=== PATIENT | male | born 1960 | race Caucasian/White ===

== ENCOUNTER → 2020-05-15 10:05 | Outpatient (BNVA) | payer OTHER, SELFPAY | PROVIDERS: Visit Provider Physician Assistant | DX: Z76.89 Persons encountering health services in other specified circumstances (principal) ==

== ENCOUNTER → 2020-05-23 10:20 | Outpatient (BNVA) | payer OTHER, SELFPAY | PROVIDERS: Visit Provider Physician Assistant | DX: Z13.89 Encounter for screening for other disorder (principal) | CPT/HCPCS: 99213 ==

== ENCOUNTER 2020-06-02 19:07 | Outpatient (REF) | payer OTHER, SELFPAY ==
--- NOTE | 2020-06-02 19:09 | MR_ITS ---
EXAMINATION: MR LUMBAR SPINE WITHOUT CONTRAST CLINICAL INFORMATION: Back pain with worsening paresthesias and weakness. COMPARISON: MRI scan of the lumbar spine 10/08/2019. TECHNIQUE: MRI of the lumbar spine was obtained using routine sequences without contrast. FINDINGS: VERTEBRAL BODIES AND PARASPINAL STRUCTURES: There is anatomic alignment of the vertebral bodies. There is significant intervertebral discs at L1-L2, L4-L5 and L5-S1 with loss of intervertebral disc height at L5-S1, unchanged. Vertebral body heights and contours appear normal. There are degenerative endplate contour changes at L5-S1 with fatty signal toward the left. No fractures are demonstrated and vertebral body heights are maintained. Overall, marrow signal is homogenous. Visualized retroperitoneal and pelvic structures are unremarkable. CONUS MEDULLARIS AND CAUDA EQUINA: Normal, terminating at the level of L1. The lower thoracic spinal cord appears normal. The cauda equina nerve roots and filum terminale appear normal. SPINAL LEVELS: L1-L2: There is mild bilateral facet arthropathy. There is a small diffuse disc bulge. There is no central stenosis. The neural foramina are patent bilaterally. L2-L3: There is mild bilateral facet arthropathy. Disc contour is normal. There is no central stenosis. The neural foramina are patent bilaterally. L3-L4: There is mild bilateral facet arthropathy. Disc contour is normal. There is no central stenosis. The neural foramina are patent bilaterally. L4-L5: There is moderate bilateral facet arthropathy. There is a small disc protrusion in the right neural foramen without exiting nerve root impingement. There is no central stenosis. L5-S1: There is moderate bilateral facet arthropathy. There is a posterior disc protrusion extending into the neural foramina bilaterally with an annular fissure on the right; the study redemonstrates a lateral disc osteophyte complex without definite exiting nerve root impingement. There is no central stenosis. MR/MR lumbar spine wo con IMPRESSION: 1. At L4-L5 there is moderate facet arthropathy. There is a small disc protrusion inferiorly the right without exiting nerve root impingement. There is no central stenosis. 2. At L5-S1 there is moderate facet arthropathy. There is a posterior disc protrusion extending into the neural foramina bilaterally, with a disc osteophyte complex extending into the right neural foramen without definite exiting nerve root impingement. There is no central stenosis.
== END 2020-06-02 19:08 | disposition home or self-care (01) ==
LOC: HO.MRI 19:07
PROVIDERS: PCP Obstetrics & Gynecology; Visit Provider Internal Medicine
DX: M54.9 Dorsalgia, unspecified (principal); R20.2 Paresthesia of skin; M62.81 Muscle weakness (generalized)
CPT/HCPCS: 72148

== ENCOUNTER → 2020-06-05 10:08 | Outpatient (BNVA) | payer OTHER, SELFPAY | PROVIDERS: PCP Obstetrics & Gynecology; Visit Provider Physician Assistant | DX: S39.012D Strain of muscle, fascia and tendon of lower back, subsequent encounter (principal); X58.XXXD Exposure to other specified factors, subsequent encounter; M54.41 Lumbago with sciatica, right side; R20.2 Paresthesia of skin; R53.1 Weakness | CPT/HCPCS: 99213 ==

== ENCOUNTER → 2020-06-19 10:16 | Outpatient (BNVA) | payer OTHER, SELFPAY | PROVIDERS: PCP Obstetrics & Gynecology; Visit Provider Physician Assistant | DX: G54.4 Lumbosacral root disorders, not elsewhere classified (principal) | CPT/HCPCS: 99213 ==

== ENCOUNTER → 2020-06-22 10:29 | Outpatient (BNVA) | payer OTHER, SELFPAY | PROVIDERS: PCP Obstetrics & Gynecology; Visit Provider Internal Medicine | DX: M51.27 Other intervertebral disc displacement, lumbosacral region (principal); M47.817 Spondylosis without myelopathy or radiculopathy, lumbosacral region | CPT/HCPCS: 99213 ==

== ENCOUNTER → 2020-07-04 | Outpatient (BNVA) | payer OTHER, SELFPAY | PROVIDERS: PCP Obstetrics & Gynecology; Visit Provider Internal Medicine | DX: G54.4 Lumbosacral root disorders, not elsewhere classified (principal) | CPT/HCPCS: 99213 ==

== ENCOUNTER → 2020-07-19 09:51 | Outpatient (BNVA) | payer OTHER, SELFPAY | PROVIDERS: PCP Obstetrics & Gynecology; Visit Provider Internal Medicine | DX: M51.36 Other intervertebral disc degeneration, lumbar region (principal) | CPT/HCPCS: 99213 ==

== ENCOUNTER → 2020-08-02 09:38 | Outpatient (BNVA) | payer OTHER, SELFPAY | PROVIDERS: PCP Obstetrics & Gynecology; Visit Provider Internal Medicine | DX: G89.29 Other chronic pain (principal); M54.5 Low back pain; M47.896 Other spondylosis, lumbar region; M53.3 Sacrococcygeal disorders, not elsewhere classified | CPT/HCPCS: 99214 ==

== ENCOUNTER → 2020-08-15 13:49 | Outpatient (BNVA) | payer OTHER, SELFPAY | PROVIDERS: PCP Obstetrics & Gynecology; Visit Provider Internal Medicine | DX: G89.29 Other chronic pain (principal); M54.5 Low back pain; M53.3 Sacrococcygeal disorders, not elsewhere classified | CPT/HCPCS: 99213 ==

== ENCOUNTER → 2020-09-15 13:54 | Outpatient (BNVA) | payer OTHER, SELFPAY | PROVIDERS: PCP Obstetrics & Gynecology; Visit Provider Internal Medicine | DX: M53.3 Sacrococcygeal disorders, not elsewhere classified (principal); M47.894 Other spondylosis, thoracic region; G89.29 Other chronic pain; M54.9 Dorsalgia, unspecified; M54.5 Low back pain | CPT/HCPCS: 99213 ==

== ENCOUNTER → 2020-09-29 13:52 | Outpatient (BNVA) | payer OTHER, SELFPAY | PROVIDERS: PCP Obstetrics & Gynecology; Visit Provider Internal Medicine | DX: M53.3 Sacrococcygeal disorders, not elsewhere classified (principal); M47.896 Other spondylosis, lumbar region; G89.29 Other chronic pain; M25.579 Pain in unspecified ankle and joints of unspecified foot | CPT/HCPCS: 99213 ==

== ENCOUNTER → 2020-10-27 14:05 | Outpatient (BNVA) | payer OTHER, SELFPAY | PROVIDERS: PCP Obstetrics & Gynecology; Visit Provider Internal Medicine | DX: M53.3 Sacrococcygeal disorders, not elsewhere classified (principal); G89.29 Other chronic pain; M54.9 Dorsalgia, unspecified | CPT/HCPCS: 99213 ==

== ENCOUNTER → 2020-11-10 13:54 | Outpatient (BNVA) | payer OTHER, SELFPAY | PROVIDERS: PCP Obstetrics & Gynecology; Visit Provider Internal Medicine | DX: S33.6XXD Sprain of sacroiliac joint, subsequent encounter (principal); X58.XXXD Exposure to other specified factors, subsequent encounter; M47.898 Other spondylosis, sacral and sacrococcygeal region | CPT/HCPCS: 99213 ==

== ENCOUNTER → 2020-12-08 13:37 | Outpatient (BNVA) | payer OTHER, SELFPAY | PROVIDERS: PCP Obstetrics & Gynecology; Visit Provider Internal Medicine | DX: S33.6XXD Sprain of sacroiliac joint, subsequent encounter (principal); M47.897 Other spondylosis, lumbosacral region; X58.XXXD Exposure to other specified factors, subsequent encounter | CPT/HCPCS: 99213 ==

== ENCOUNTER → 2020-12-21 15:30 | Outpatient (BNVA) | payer OTHER, SELFPAY | PROVIDERS: PCP Obstetrics & Gynecology; Visit Provider Internal Medicine | DX: M47.898 Other spondylosis, sacral and sacrococcygeal region (principal) | CPT/HCPCS: 99213 ==

== ENCOUNTER → 2021-01-05 15:33 | Outpatient (BNVA) | payer OTHER, SELFPAY | PROVIDERS: PCP Obstetrics & Gynecology; Visit Provider Internal Medicine | DX: G89.29 Other chronic pain (principal); M54.9 Dorsalgia, unspecified | CPT/HCPCS: 99213 ==

== ENCOUNTER → 2021-02-05 15:31 | Outpatient (BNVA) | payer OTHER, SELFPAY | PROVIDERS: PCP Obstetrics & Gynecology; Visit Provider Internal Medicine | DX: S39.012D Strain of muscle, fascia and tendon of lower back, subsequent encounter (principal); X58.XXXD Exposure to other specified factors, subsequent encounter | CPT/HCPCS: 99213 ==

== ENCOUNTER → 2021-02-19 15:30 | Outpatient (BNVA) | payer OTHER, SELFPAY | PROVIDERS: PCP Obstetrics & Gynecology; Visit Provider Internal Medicine | DX: M54.5 Low back pain (principal) | CPT/HCPCS: 99213 ==

== ENCOUNTER → 2021-03-22 15:20 | Outpatient (BNVA) | payer OTHER, SELFPAY | PROVIDERS: PCP Obstetrics & Gynecology; Visit Provider Internal Medicine | DX: M47.896 Other spondylosis, lumbar region (principal) | CPT/HCPCS: 99214 ==

== ENCOUNTER 2024-09-09 07:07 | Emergency (ER) | payer OTHER, SELFPAY ==
[2024-09-09] VITALS (8 sets, daily range): BP systolic 122–190; BP diastolic 75–102; PULSE 78–89; RESP 18; TEMP 36.4–37.1; O2SAT 96–100; BMI 35.4
--- NOTE | ~2024-09-09 | XR_ITS ---
EXAMINATION: XR SHOULDER, LEFT CLINICAL INFORMATION: post reduction COMPARISON: Earlier same day at 8:12 AM. TECHNIQUE: Single AP view left shoulder, post reduction. FINDINGS: Previously seen anteroinferior glenohumeral joint dislocation has been reduced. Gross anatomical glenohumeral alignment on this limited AP view. No definitive fractures identified although exam limited. XR/XR shoulder LT min 2V IMPRESSION: 1. Limited AP view demonstrating congregational of gross anatomical alignment of the glenohumeral joint. 2. Exam limited for detection of fractures. None grossly seen. Electronically signed by: Serafin Daly MD 09/09/2024 09:[address] [facility]
--- NOTE | ~2024-09-09 | XR_ITS ---
EXAMINATION: XR SHOULDER 2 OR MORE VIEWS LEFT HISTORY: trauma COMPARISON: There are no prior studies available for comparison. FINDINGS: Five views of the left shoulder are submitted. Osseous mineralization is normal. There is anterior dislocation of the humeral head. No fracture is seen. There is moderate to severe osteophytosis of the AC joint, with joint space narrowing and osteophyte formation. The soft tissues are unremarkable. XR/XR shoulder LT min 2V IMPRESSION: Anterior dislocation of the humeral head. Electronically signed by: Max Luis MD 09/09/2024 08:20 AM [facility]
--- NOTE | ~2024-09-09 | XR_ITS ---
EXAMINATION: XR KNEE 3 VIEWS RIGHT HISTORY: trauma COMPARISON: There are no prior studies available for comparison. FINDINGS: Four views of the right knee are submitted. Osseous mineralization is normal. There is no fracture or dislocation. The joint spaces are preserved. There is calcification of the popliteal artery. There is no joint effusion. XR/XR knee RT 3V IMPRESSION: No evidence of fracture of the right knee. Electronically signed by: Max Luis MD 09/09/2024 08:22 AM [facility]
--- NOTE | 2024-09-09 07:14 | ED_ITS ---
HPI - Fall General Chief Complaint: Fall Stated Complaint: work fall -knee pain & Shoulder dislocation Source: patient Mode of arrival: EMS Limitations: no limitations History of Present Illness HPI Narrative: This is 64 years old male presented to the emergency department via ambulance after a fall at work. He tripped and fell. He is complaining of left shoulder pain and right knee pain. No head injury no neck pain no chest wall pain no abdominal pain MD complaint: fall Onset (ago): hour(s) (2) Fall from: standing Fall witnessed: no Place fall occurred: work Loss of consciousness: none Prolonged down time: no Context: tripped/slipped Location of injury - extremities: left: shoulder Severity: moderate Severity scale (1-10): 5 Quality: sharp Associated symptoms (after fall): denies Related Data Allergies Allergy/AdvReac Type Severity Reaction Status Date / Time penicillin G Allergy Unknown Hives Verified 09/09/24 07:19 Penicillins [PENICILLINS] Allergy Unknown UNKNOWN Unverified 04/27/20 15:42 Review of Systems Constitutional: Constitutional: Reports no additional constitutional complaints ENT: Reports system reviewed and no additional complaints, except as documented Gastrointestinal: Gastrointestinal: Reports no additional gastrointestinal complaints Musculoskeletal: Comments: Tenderness in the left shoulder deformity in the left shoulder PMFSH Past Medical History PMFSH Narrative: Hypertension Social History Social History Smoked in Last 30 Days: No Use of substances other than those prescribed or required for medical reasons: No Advance Directives: No Advance Directives Information Provided: Yes Physical Exam Vital Signs: Vital Signs: Last Vital Signs Temp 98.7 F 09/09/24 08:30 Pulse 80 09/09/24 08:38 Resp 18 09/09/24 08:38 BP 147/96 H 09/09/24 08:38 Pulse Ox 99 09/09/24 08:38 O2 Del Method Nasal Cannula 09/09/24 08:38 O2 Flow Rate 4 09/09/24 08:38 Oxygen Flow Rate 6 09/09/24 08:30 BMI result Body Mass Index 35.4 Not acute distress Const: General: cooperative Orientation/consciousness: patient oriented x3 Limitations: no limitations HEENT: Other: No sign of trauma Neck: Neck: Yes normal visual inspection and Yes full ROM Chest: Chest palpation & inspection: normal inspection of the chest Resp: Effort & Inspection: normal respiratory effort Auscultation: clear to auscultation bilaterally Cardio: Jugular venous distension: no JVD Rate: regular rate Rhythm: regular rhythm GI: Inspection: Yes normal to inspection Palpation (GI): Soft to palpation, not firm, nontender and no guarding Neuro: General: patient oriented x3 Extrem: Other: Tenderness, deformity of the left shoulder Course Reevaluation(s) Reevaluation #1: Patient signed consent for deep sedation and reduction Mallampati 1 no prior problems with the anesthesia we will proceed with procedural sedation with propofol Time: 08:22 Reevaluation #2: Shoulder is reduced clinically, also x-ray showed reduction of the shoulder anticipate discharge Time: 09:14 Reevaluation #3: remain stable his ride is here Medications Administered Discontinued Medications Generic Name Dose Route Start Last Admin Trade Name Jorjeq PRN Reason Stop Dose Admin Fentanyl 50 mcg 09/09/24 07:18 09/09/24 07:33 Fentanyl Citrate/Pf 100 Mcg/2 Ml Vial IVPUSH 09/09/24 07:19 50 mcg ONCE ONE Administration Protocol Propofol 100 mg 09/09/24 08:16 09/09/24 08:38 Propofol 200 Mg/20 Ml Vial IVPUSH 09/09/24 08:17 90 mg ONCE ONE Administration Procedures Orthopedic Joint Reduction Joint #1: Time Out Performed: Yes Side: left Joint Reduction Location: shoulder Analgesia: procedural sedation Shoulder Technique Used (if applicable): traction/counter-traction Technique used: traction/counter-traction and direct manipulation Post-reduction neuro exam: intact Post-reduction vascular: intact Post Reduction X-Ray Obtained: Yes Post Reduction X-Ray Results: reduced Patient Tolerated Procedure: well Procedural Sedation Indication: fracture/dislocation reduction ASA Class: II Mallampati Class: I Time of Last PO Intake: 05:00 Preparation: carbonating stone cleaner applied, pulse oximeter, capnometry used, supplemental O2 applied, suction/airway equipment at bedside and IV secured Fentanyl: IV Fentanyl dose (mcg): 50 IV Propofol dose (mg): 90 Patient Tolerated Procedure: well Complications: none Medical Decision Making Medical Decision Making MDM Narrative: Patient presented after a fall, exam consistent with left shoulder dislocation Differential Diagnosis Differential Diagnoses: The differential diagnosis associated with the presentation includes Left shoulder dislocation/fracture of the humerus/fracture of the clavicle Independent Interpretation I performed an independent interpretation of an: Plain X-Ray Interpretation: X-ray was reviewed interpreted by me 1st x-ray showed left shoulder dislocation x-ray done after reduction showed normal autonomy Radiology Impression Discussion of test interpretation with radiology: I have reviewed the radiologist's reading. Independent Historian Clinical information obtained from an independent historian. History obtained from or confirmed by: EMS Chronic Conditions Patient?s care impacted by: Hypertension Discharge Plan Discharge Clinical Impression: Dislocation of shoulder Qualifiers: Encounter type: initial encounter Laterality: left Qualified Code(s): S43.005A - Unspecified dislocation of left shoulder joint, initial encounter Patient Disposition: Home, Self-Care Instructions: Shoulder Dislocation (ED) Additional Instructions: Keep the sling on make an appointment with the with the orthopedist return to the emergency room if worse Referrals: Hiro Sandhu MD [Physician] - 09/13/24 Stand Alone Forms: Work/School Release Print Language: Egyptian
[2024-09-09] MEDS: fentaNYL citrate/PF 100 MCG/2 ML VIAL 50 MCG IVPUSH (07:33)
[2024-09-09] MEDS: propofoL 200 MG/20 ML VIAL 100 MG IVPUSH (08:38)
--- NOTE | 2024-09-09 08:49 | MHC.EDTECH ---
pt placed with shoulder immobilizer sling, ortho paperwork signed and in proper area, signed papers, pt resting at this time
--- NOTE | 2024-09-09 09:01 | PC.NURSE ---
CONSCIOUS SEDATION DONE: RT, , PA AND 2 RNS AT BEDSIDE CRASH CART AVAILABLE, SUCTION SET UP. PT ON RAG INSPECTOR AND END TIDAL CO2. Time out done IV in right AC patent MD ADMINISTERED 90 MG OF PROPOFOL FOR SEDATION Pts left shoulder successfully reduced per MD, sling placed PT TOLERATED PROCEDURE WELL WITH NO ISSUES/ COMPLICATIONS. VSS RNs remained in room until pt back to baseline, reporting he overall feels well
--- NOTE | 2024-09-09 09:04 | PC.NURSE ---
ONLY 90 MG OF PROPOFOL GIVEN BY MD, 2 RNS VERIFYING, 110 MG WASTED
--- OUTSIDE RECORDS SUMMARY | 2024-09-09 10:41 | XMS_ITS | Clinical Summary ---
Author Organization [facility] it Address [id number] [place] [id number] Care Team Providers Care Fly Finisher Name Role Phone Babak Aiken MD Primary Care Provider [phone] Allergies Active Allergy Reactions Criticality Noted Date Comments Penicillins Hives 05/30/2006 Medications Medication Sig Dispensed Refills Start Date End Date Status lisinopriL (PRINIVIL,ZESTRI L) 20 mg tablet TAKE 1 TABLET BY MOUTH DAILY 90 tablet 08/10/2024 Active lisinopriL (PRINIVIL,ZESTRI L) 20 mg tablet Take 1 tablet (20 mg total) by mouth 1 (one) time each day. 01/30/2024 Active multivitamin with minerals (MULTIPLE VITAMIN-MINERALS ORAL) Take by mouth 1 (one) time each day. Active rosuvastatin (CRESTOR) 10 mg tablet TAKE 1 TABLET BY MOUTH EVERY EVENING Active fluticasone propionate (FLONASE) 50 mcg/actuation nasal spray Administer 2 sprays into each nostril 1 (one) time each day. 06/25/2023 Active fluticasone propionate (FLONASE) 50 mcg/actuation nasal spray SHAKE LIQUID AND USE 2 SPRAYS IN EACH NOSTRIL DAILY 16 g 2 08/25/2024 Active fluticasone propionate (FLONASE) 50 mcg/actuation nasal spray SHAKE LIQUID AND USE 2 SPRAYS IN EACH NOSTRIL DAILY 16 g 07/19/2024 Discontinued Active Problems Problem Noted Date Diagnosed Date Essential (primary) hypertension 08/10/2024 Pure hypercholesterolemia 08/10/2024 Microscopic hematuria 09/25/2021 Bilateral hydrocele 10/01/2019 Overview (08/10/2024): U/s 09/2019 Lumbar spondylosis 11/02/2018 Neural foraminal stenosis of lumbosacral spine 0 11/02/2018 Overview (08/10/2024): MRI - mild-moderate L and mild R at L5 - S 1 Left inguinal hernia 06/27/2016 Umbilical hernia without obstruction and without gangrene 06/27/2016 Obesity (BMI 30-39.9) 11/05/2013 Immunizations Name Administration Dates Next Due Influenza Quadravalent, MDCK , 0.5ml, preservative free (Flucelvax) 6mo and older 05/27/2023 Influenza trivalent, 0.5mL, preservative free (Fluarix; FluLaval; Fluzone) ages 6mo and older (Afluria) 3 years and older 04/24/2016,05/16/2015,06/07/2014,2012,06/18/2010,05/22/2007 Pneumococcal conjugate 20 va lent (Prevnar 20, PCV 20) 2mo and older 12/02/2023 Tdap Tetanus diptheria acell ular pertussis (Boostrix; Adacel) 7yo and older 05/27/2023,09/25/2011 Surgical History Surgery Date Site/Laterality Comments COLONOSCOPY 08/08/08 PROCEDURE: IN COLONOSCOPY STOMA DX INCLUDING COLLJ SPEC SPX; COMMENT: Up to cecum, good preparation, small polyp removed: Normal mucosa with lymphoid nodule, no adenoma, otherwise normal colon exam FOOT SURGERY Bilateral PROCEDURE: HISTORICAL FOOT SURGERY; COMMENT: achilles tendon repairs HERNIA REPAIR PROCEDURE: REPAIR UMBILICAL HERNIA HERNIA REPAIR PROCEDURE: REPAIR INGUINAL HERNIA OTHER SURGICAL HISTORY PROCEDURE: ---- OTHER ----; COMMENT: ventral hernia repair Medical History Medical History Date Comments Pure hypercholesterolemia DX:Pur e hypercholesterolemia Leukocytosis, unspecified DX:Ita kocytosis, unspecified Lumbago DX:Lumbago History of pyelonephritis DX:His tory of pyelonephritis Essential (primary) hypertension DX:Essential (primary) hypertension History of avulsion fracture 11/02/2018 DX: History of avulsion fracture; COMMENT: L Elbow- post fall. Saw Ortho Left inguinal hernia 06/27/2016 DX:Left ing uinal hernia Lumbar spondylosis 11/02/2018 DX:Lumbar spo ndylosis Neural foraminal stenosis of lumbosacral spine 11/02/2018 DX:Neural foraminal stenosis of lumbosacral spine; COMMENT: MRI - mild-moderate L and mild R at L5 - S 1 Umbilical hernia without obs truction and without gangrene 06/27/2016 DX:Umbilical hernia without obstruction and without gangrene Obesity (BMI 30-39.9) 11/05/2013 DX:Obesity (BMI 30-39.9) History of acute renal failure D X:History of acute renal failure; COMMENT: Dr. Neal Family History Medical History Relation Name Comments Other: ?COPD Brother 1 tobacco-oxygen tank exploded b/c smoking while on O2 No Known Problems Daughter 1 No Known Problems Daughter 2 Lung cancer Father tobacco, a ge 44yo. also drinker Stroke Maternal Grandmother Breast cancer Mother Hypertension Mother Coronary artery disease Paternal Grandfather s/p ID No Known Problems Son 1 No Known Problems Son 2 No Known Problems Son 3 Coronary artery disease Uncle dad's bro s/p ID Diabetes Uncle dad's bro Relation Name Status Comments Brother 1 On oxygen david [place] had fire Brother 2 Alive healthy Daughter 1 Alive healthy Daughter 2 Alive healthy Father (Age 44) lung CA Maternal Grandfather (Age 70) st omach CA Maternal Grandmother (Age 50's ) mi Mother (Age 70s) Breast ca ncer Paternal Grandfather (Age 0s) Mi Paternal Grandmother [place] Sister 1 Alive brain aneurism x 3 Sister 2 Alive diabetes Sister 3 Alive healthy Sister 4 Alive healthy Son 1 Alive healthy Son 2 Alive healthy Son 3 Alive healthy Uncle dad's bro Alive Social History Tobacco Use Types Packs/Day Years Used Date Smoking Tobacco: Former Cigarettes Q uit: 12/31/2012 Smokeless Tobacco: Former Alcohol Use Standard Drinks/Week Comments No 25 (1 standard drink = 0.6 oz pu re alcohol) Sex and Gender Information Value Date Recorded Sex Assigned at Not on file Gender Identity Not on file Sexual Orientation Not on file Obstetrics History Last Filed Vital Signs Vital Sign Reading Time Taken Comments Blood Pressure 113/64 12/02/2023 2:26 PM EDT Pulse 100 08/20/2023 10:14 AM EST Temperature - - Respiratory Rate - - Oxygen Saturation - - Inhaled Oxygen Concentration - - Weight 104 kg (230 lb) 12/02/2023 2:26 PM EDT Height 175.3 cm (5' 9 ) 12/02/2023 2:26 PM EDT Body Mass Index 33.96 12/02/2023 2:26 PM EDT Plan of Treatment Health Maintenance Due Date Last Done Comments Zoster Vaccines (1 of 2) 2008 Depression Screening 07/14/2022 Lung Cancer Screening (Low Dose CT) 07/14/2022 Social Influencers of Health Screening 07/14/2022 Falls Risk Assessment 2023 COVID-19 Vaccine ( season) 2024 01/20/2021, 12/30/2020 Influenza Vaccine (#1) 2024 , 04/24/2016, 05/16/2015, Additional history exists Hypertension/CHF/CAD Annual BMP Blood Test 12/01/2024 12/02/2023 Cholesterol Screening (Lipid Panel) 12/01/2028 12/02/2023 Colorectal Cancer Screening: Colonoscopy 02/14/2032 02/13/2022 DTaP,Tdap,and Td Vaccines (3 - Td or Tdap) 05/27/2033 05/27/2023, 09/25/2011 RSV Immunization Patients 60+ Years Old (1 - 1-dose 75+ series) 2033 Hepatitis C Screening Completed 04/01/2015 Pneumococcal Vaccine: 65+ Years Completed 12/02/2023 Abdominal Aortic Aneurysm (AAA) Screen Completed 12/15/2023, 12/15/2023, 12/15/2023 HIB Vaccines Aged Out No longer eligi ble based on patient's age to complete this topic HPV Vaccines Aged Out No longer eligi ble based on patient's age to complete this topic Hepatitis A Vaccines Aged Out No long er eligible based on patient's age to complete this topic Hepatitis B Vaccines Aged Out No long er eligible based on patient's age to complete this topic IPV Vaccines Aged Out No longer eligi ble based on patient's age to complete this topic MMR Vaccines Aged Out No longer eligi ble based on patient's age to complete this topic Meningococcal ACWY Vaccine Aged Out N o longer eligible based on patient's age to complete this topic RSV Immunization Patients Under 20 months Aged Out No longer eligible based on patient's age to complete this topic Varicella Vaccines Aged Out No longer eligible based on patient's age to complete this topic Procedures Procedure Name Priority Date/Time Associated Diagnosis Comments US ABDOMINAL AORTA REAL TIME SCREEN STUDY AAA Routine 12/15/2023 8:40 AM EDT Encounter for screening for cardiovascular disorders ANNUAL BMP BLOOD TEST Routine 12/02/2023 LIPID PANEL Routine 12/02/2023 COLONOSCOPY Routine 02/13/2022 HEPATITIS C SCREENING Routine 04/01/2015 from Last 3 Months or Most Recently Relevant to Health Maintenance Results * US ABDOMINAL AORTA REAL TIME SCREEN STUDY AAA (12/15/2023 8:40 AM EDT) Anatomical Region Laterality Modality Ultrasound 12/02/2023 2:44 PM EDT Narrative 12/15/2023 10:07 AM EDT US ABDOMINAL AORTA REAL TIME SCREEN STUDY AAA ABDOMINAL AORTA SCREENING ULTRASOUND History: ??Screening for abdominal aortic aneurysm. Comparison: None. FINDINGS: ??The proximal aorta measures 2.7 cm in diameter. The mid aorta measures 2.1 cm in diameter. The distal aorta measures 1.7 cm in diameter. There is atherosclerosis. No periaortic fluid collection is seen. The aortic bifurcation is normal in appearance. The proximal bilateral common iliac arteries are normal in caliber. IMPRESSION: IMPRESSION: No visualized abdominal aortic aneurysm. Procedure Note Saskia Bowman MD - 03/29/2024 US ABDOMINAL AORTA REAL TIME SCREEN STUDY AAA ABDOMINAL AORTA SCREENING ULTRASOUND History: Screening for abdominal aortic aneurysm. Comparison: None. FINDINGS: The proximal aorta measures 2.7 cm in diameter. The mid aortameasures 2.1 cm in diameter. The distal aorta measures 1.7 cm in diameter. There is atherosclerosis. No periaortic fluid collection is seen. The aortic bifurcation is normalin appearance. The proximal bilateral common iliac arteries are normal in caliber. IMPRESSION: IMPRESSION: No visualized abdominal aortic aneurysm. C Naeem Aiken MD IMG US PROCEDURES * Annual BMP Blood Test (12/02/2023) [facility] Annual BMP Blood Test abstracted Historical Provider MD LIBIA Rosa * (ABNORMAL) Lipid panel (12/02/2023) [facility] LDL/HDL Ratio 4 0 - 4 Triglycerides 235(A) 0 - 150 mg/dL Cholesterol 176 0 - 200 mg/dL HDL 44 40 mg/dL LDL Cholesterol 85 0 - 100 mg/dL Blood Venous blood specimen / Unknown Historical Provider LAB BLOOD ORDERAB LES * Colonoscopy (02/13/2022) [facility] Colonoscopy abnormal, abstracted Anatomical Region Laterality Modality Other Historical Provider MD LIBIA MERCADO * Hepatitis C Screening (04/01/2015) [facility] Hepatitis C Screening abstracted Historical Provider MD LIBIA Rosa from Last 3 Months or Most Recently Relevant to Health Maintenance Care Teams Fly Finisher Relationship Specialty Start Date End Date Babak Aiken MD [address] [place] [id number] PCP - General Internal Medicine 02/09/21
== END 2024-09-09 10:15 | disposition home or self-care (01) ==
PROVIDERS: Emergency Provider Emergency Medicine
DX: S43.015A Anterior dislocation of left humerus, initial encounter (principal); W01.198A Fall on same level from slipping, tripping and stumbling with subsequent striking against other object, initial encounter; M25.561 Pain in right knee; Y93.89 Activity, other specified; Y92.9 Unspecified place or not applicable; Y99.0 Civilian activity done for income or pay
CPT/HCPCS: 23650; 73030; 73562; 96374; 96375; 99284; 99285; J2704; J3010

== ENCOUNTER → 2024-09-09 07:13 | Outpatient (BNV) | payer OTHER, SELFPAY | PROVIDERS: Emergency Provider Emergency Medicine; Visit Provider Radiology Diagnostic Radiology | DX: S43.015A Anterior dislocation of left humerus, initial encounter (principal); M25.512 Pain in left shoulder; S80.911A Unspecified superficial injury of right knee, initial encounter | CPT/HCPCS: 73030; 73562 ==

== ENCOUNTER 2024-09-09 14:42 | Emergency (ER) | payer OTHER, SELFPAY ==
--- NOTE | ~2024-09-09 | XR_ITS ---
EXAMINATION: XR SHOULDER, LEFT CLINICAL INFORMATION: pain COMPARISON: None available. TECHNIQUE: AP external rotation, Grashey, scapular Y, and axillary views of the left shoulder. FINDINGS: No acute cortical disruption or malalignment. Focal calcification below the surgical humeral neck. Degenerative changes in the acromioclavicular joint. No lytic or blastic lesions. XR/XR shoulder LT min 2V IMPRESSION: No acute fracture or dislocation. Electronically signed by: Emmanuel Ware MD 09/09/2024 03:55 PM EST RP
[2024-09-09 14:51] VITALS: BP 156/91; PULSE 104; RESP 16; TEMP 36.4; O2SAT 97; BMI 35.2
--- NOTE | 2024-09-09 14:55 | ED_ITS ---
HPI - General Adult General Chief complaint: Extremity Problem Stated complaint: L shoulder dislocation - seen earlier Time Seen by Provider: 09/09/24 17:07 Source: patient, RN notes reviewed and old records reviewed Mode of arrival: ambulatory Limitations: no limitations History of Present Illness ED Provider: Oniel HPI narrative: 64-year-old male presents for evaluation of left shoulder pain. The patient was discharged from this hospital a few hours prior to arrival after being diagnosed with a left shoulder dislocation. He apparently had a rather difficult reduction in required conscious sedation. He reports he took his sling off to shower and had increasing pain to his left shoulder. He is worried that he dislocated the left shoulder again Related Data Previous Rx's ?Medication ?Instructions ?Recorded ibuprofen 600 mg tablet 600 mg PO Q6H PRN pain #20 tabs 09/09/24 Allergies Allergy/AdvReac Type Severity Reaction Status Date / Time penicillin G Allergy Unknown Hives Verified 09/09/24 14:55 Penicillins [PENICILLINS] Allergy Unknown UNKNOWN Verified 09/09/24 14:55 Review of Systems Musculoskeletal: Musculoskeletal: Reports arthralgias, Reports joint swelling and Reports limited range of motion PMFSH Social History Social History Advance Directives: Yes Advance Directives Information Provided: No Advance Directives on File: No Physical Exam ED Vital Signs: Vital Signs - 24 hr 09/09/24 14:51 09/09/24 17:46 Temperature 97.6 F 97.6 F Pulse Rate 104 H 104 H Respiratory Rate 16 16 Blood Pressure 156/91 H 156/91 H Pulse Oximetry 97 97 Oxygen Delivery Method Room Air Room Air BMI result Body Mass Index 35.2 Const General: healthy appearing, comfortable, no acute distress, alert and awake Nutritional Appearance: well nourished Orientation/consciousness: patient oriented x3 HENMT Head: Yes normocephalic and Yes atraumatic Eyes Eyelids: Yes eyelids normal Conjunctivae: conjunctivae normal Sclerae: sclerae normal Corneas: corneas normal Pupils: Equal, round and reactive pupils present EOM: EOMs intact bilaterally Resp Effort & Inspection: normal respiratory effort, able to speak in complete sentences and not labored Skin General skin exam: elasticity normal Neuro General: patient oriented x3 Cranial nerves: Yes Equal, round and reactive pupils present and Yes Bilaterally intact EOM present Cognition (Neuro): normal cognition Extrem Other: The patient has minimal tenderness to the left shoulder globally. There was no palpable deformity. It does appear that the humeral head is in the anatomically correct position on exam. Course Course Course Narrative: RME, this is a rapid medical exam performed by Willy Engle please refer to primary provider for complete H&P- 64-year-old male presents for evaluation of left shoulder pain. He was seen here this morning for a dislocated shoulder. He reports his pain had resolved when he had the shoulder reduced but reports that his pain has returned and he was concerned it was dislocated again. Plan for repeat x-ray Medical Decision Making Medical Decision Making MDM Narrative: 64-year-old male presents for evaluation of left shoulder pain, he was here a few hours ago for a shoulder dislocation. Given his returning pain an x-ray of the left shoulder was ordered to evaluate for additional dislocation Differential Diagnosis Differential Diagnoses: The differential diagnosis associated with the presentation includes Shoulder dislocation Shoulder sprain Rotator cuff injury Humeral head fracture Independent Interpretation I performed an independent interpretation of an: Plain X-Ray (Agree with Radiology interpretation) Radiology Impression Discussion of test interpretation with radiology: I have reviewed the radi ologist's reading. Radiologist Impression: FINDINGS: No acute cortical disruption or malalignment. Focal calcification below the surgical humeral neck. Degenerative changes in the acromioclavicular joint. No lytic or blastic lesions. XR/XR shoulder LT min 2V IMPRESSION: No acute fracture or dislocation. Electronically signed by: Emmanuel Ware MD 09/09/2024 03:55 PM [facility] Discharge Plan Discharge Clinical Impression: Acute pain of left shoulder Patient Disposition: Home, Self-Care Instructions: Arthralgia (ED) Additional Instructions: Your shoulder is still in the correct location. It did not dislocate again Follow up with Orthopedics at the number provided. Use ibuprofen as needed for pain Prescriptions: New ibuprofen 600 mg tablet 600 mg PO Q6H PRN (Reason: pain) Qty: 20 0RF Interventions: ED Discharge Assessment Last Done: 09/09/24 17:46 Discharge Date/Time: 09/09/24 17:47 Print Language: Armenian
[2024-09-09 17:46] VITALS: BP 156/91; PULSE 104; RESP 16; TEMP 36.4; O2SAT 97
== END 2024-09-09 17:47 | disposition home or self-care (01) ==
PROVIDERS: Emergency Provider Emergency Medicine
DX: M25.512 Pain in left shoulder (principal)
CPT/HCPCS: 73030; 99282; 99283

== ENCOUNTER 2024-09-24 13:21 | Outpatient (AMB) | payer OTHER, SELFPAY ==
--- NOTE | 2024-09-24 13:32 | A.OFFVIS_ITS ---
Vital Signs 09/24/24 13:47 Height 5 ft 9 in Weight 238 lb BMI 35.1 Intake Visit Reasons: FC - Right Shoulder dislocation- 09/09/24 Intake Note: * Matteo 64 yr old male who is right hand dominant, presents today for his W/C injury to his right shoulder. States he tripped and fell. 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 He later return to the ED due to increase pain when he removed his sling. Currently states his pain is better as long as he wears his sling, and when he lifts his arm to shoulder. Denies numbness or tingling in hand. Allergies penicillin G Allergy (Unknown, Verified 09/24/24 13:46) Hives Penicillins [PENICILLINS] Allergy (Unknown, Verified 09/24/24 13:46) UNKNOWN Medication List - Last Reconciled 09/28/24 by Reyna Wilkerson PA-C ibuprofen 600 mg PO Q6H PRN lisinopril mg PO DAILY rosuvastatin mg PO HPI HPI FC - Right Shoulder dislocation- 09/09/24: Details: 64 yo male presents to the office today for an injury he sustained to the left shoulder while at work on 09/09/24. He states he fell with his arm stretched out and as he landed the shoulder came out of socket. He was seen in the ED, xrays obtained which was significant for dislocation. The shoulder was reduced and he was placed in a sling and referred to our office for ortho eval. 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 Tenderness to palpation over the proximal bicep tendon. He is able to initiate RTC strength with mild discomfort. NVI. Assessment & Plan Assessment & Plan (1) Dislocation of shoulder: Code(s): S43.006A - Unspecified dislocation of unspecified shoulder joint, initial encounter Category: Medical Qualifiers: Encounter type: initial encounter Laterality: left Qualified Code(s): S43.005A - Unspecified dislocation of left shoulder joint, initial encounter Plan: An order for PT has been placed to work on ROM, RTC and periscap stabilization. He should limit overhead activity and avoid positions of instability. He may return to work with restrictions of no lifting, pushing, pulling, and carrying with left arm until next follow up appointment in 6 weeks, sooner if needed. Orders: Orders PT Evaluation and Treatment Today S43.005A - Unspecified dislocation of left shoulder joint, initial encounter Coding Level of Care Code New Pt Level 3 (65067) Complex EM visit Add On G2211 Diagnoses Dislocation of shoulder S43.005A Encounter type: initial encounter Laterality: left
--- OUTSIDE RECORDS SUMMARY | 2024-09-24 13:34 | XMS_ITS | Clinical Summary ---
Author Organization [facility] [address] Address [address] [place] [address] Phone Care Team Providers Care Mailroom Courier Name Role Phone Babak Aiken MD Primary Care Provider [phone] Allergies Active Allergy Reactions Criticality Noted Date Comments Penicillins Hives 05/30/2006 Medications lisinopriL (PRINIVIL,ZESTR IL) 20 mg tablet TAKE 1 TABLET BY MOUTH DAILY 90 tablet 4 Active lisinopriL (PRINIVIL,ZESTR IL) 20 mg tablet Take 1 tablet (20 mg total) by mouth 1 (one) time each day. 4 Active multivitamin with minerals (MULTIPLE VITAMIN-MINERAL S ORAL) Take by mouth 1 (one) time each day. Active rosuvastatin (CRESTOR) 10 mg tablet TAKE 1 TABLET BY MOUTH EVERY EVENING Active fluticasone propionate (FLONASE) 50 mcg/actuation nasal spray Administer 2 sprays into each nostril 1 (one) time each day. 3 Active fluticasone propionate (FLONASE) 50 mcg/actuation nasal spray SHAKE LIQUID AND USE 2 SPRAYS IN EACH NOSTRIL DAILY 16 g 2 5 Active Active Problems Problem Noted Date Diagnosed Date [...] Surgery Date Site/Laterality Comments COLONOSCOPY 08/08/08 PROCEDURE: TX COLONOSCOPY STOMA DX INCLUDING COLLJ SPEC SPX; [...] Mother Coronary artery disease Paternal Grandfather s/p RI No Known Problems Son 1 No Known Problems Son 2 No Known Problems Son 3 Coronary artery disease Uncle dad's bro s/p [place] Diabetes Uncle dad's bro Relation Name Status [...] Recorded Sex Assigned at Not on file Legal Sex Male 3:02 AM EST Gender Identity Not on file Sexual Orientation [...] Hepatitis C Screening Completed 04/01/2015 Pneumococcal Vaccine: 50+ Years Completed 12/02/2023 Abdominal Aortic Aneurysm (AAA) [...] patient's age to complete this topic Meningococcal B Vacine Aged Out No lo nger eligible based on patient's age to complete [...] abdominal aortic aneurysm. C Naeem Aiken MD IM US PROCEDURES Final Result * Annual BMP Blood Test (12/02/2023) [facility] Annual BMP Blood Test abstracted [facility] Provider HEALTH MAINTENANCE Final Result * (ABNORMAL) Lipid panel (12/02/2023) [facility] LDL/HDL Ratio 4 0 - 4 Triglycerides 235(A) 0 - 150 mg/dL Cholesterol 176 0 - 200 mg/dL HDL 44 >=40 mg/dL LDL Cholesterol 85 0 - 100 mg/dL Blood Venous blood specimen / Unknown [facility] Provider LAB BLOOD ORDERABLES Chayo l Result * Colonoscopy (02/13/2022) [facility] Colonoscopy abnormal, abstracted Anatomical Region Laterality Modality Other [facility] Provider HEALTH MAINTENANCE Final Result * Hepatitis C Screening (04/01/2015) [facility] Hepatitis C Screening abstracted [facility] Provider HEALTH MAINTENANCE Final Result from Last 3 Months or Most Recently Relevant to Health Maintenance Care Teams Mailroom Courier Relationship Specialty Start Date End Date Babak Aiken MD [address] [place] [id number] PCP - General Internal Medicine 02/09/21
[2024-09-24 13:47] VITALS: BMI 35.1
== END 2024-09-24 14:27 | disposition home or self-care (01) ==
PROVIDERS: Visit Provider Physician Assistant
DX: S43.005A Unspecified dislocation of left shoulder joint, initial encounter (principal); Z04.2 Encounter for examination and observation following work accident
CPT/HCPCS: 99203; G2211

== ENCOUNTER → 2024-09-24 13:21 | Outpatient (BNVA) | payer OTHER, SELFPAY | PROVIDERS: Visit Provider Physician Assistant | DX: S43.005A Unspecified dislocation of left shoulder joint, initial encounter (principal) | CPT/HCPCS: 99202 ==

== ENCOUNTER 2024-11-05 08:20 | Outpatient (AMB) | payer OTHER, SELFPAY ==
--- NOTE | 2024-11-05 08:31 | MHC.OFFVIS ---
Vital Signs 11/05/24 08:40 Height 5 ft 9 in Weight 238 lb BMI 35.1 Intake Visit Reasons: OV- Left Shoulder dislocation- 09/09/24 Intake Note: Matteo is a 64 year old right hand dominant male who presents today for a follow up of his right shoulder dislocation s/p Injury, DOI 09/09/24. At his last visit he was instructed to continue working with Physical Therapy, limit overhead activity and avoid positions of instability. Patient reports that his PT was cancelled and an MRI pending scheduling through his , [facility]. He states he continues to have limited ROM and is unable to fully lift his arm. His current light duty restrictions as follows: -no lifting, pushing, pulling, or carrying with the left arm Allergies penicillin G Allergy (Unknown, Verified 11/05/24 08:47) Hives Penicillins [PENICILLINS] Allergy (Unknown, Verified 11/05/24 08:47) UNKNOWN Medication List - Last Reconciled 11/05/24 by Reyna Wilkerson PA-C fluticasone propionate 50 mcg/actuation intranasal ibuprofen 600 mg PO Q6H PRN lisinopril mg PO DAILY rosuvastatin mg PO HPI HPI OV- Left Shoulder dislocation- 09/09/24: Details: 64-year-old gentleman returns to the office today for a follow-up left shoulder work injury status post dislocation and 09/09/2024. He has been working with physical therapy but continues to have limitations with motion and strength in the left upper extremity. He states some other provider ordered an MRI but has not heard anything back about scheduling. 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 Tenderness to palpation over the proximal bicep tendon. He is able to initiate RTC strength with discomfort, positive lift-off NVI. Assessment & Plan Assessment & Plan (1) Dislocation of shoulder: Code(s): S43.006A - Unspecified dislocation of unspecified shoulder joint, initial encounter Category: Medical Qualifiers: Encounter type: initial encounter Laterality: left Qualified Code(s): S43.005A - Unspecified dislocation of left shoulder joint, initial encounter (2) Injury of left rotator cuff: Code(s): S46.002A - Unspecified injury of muscle(s) and tendon(s) of the rotator cuff of left shoulder, initial encounter Category: Medical Plan At this time an MRI of the left shoulder has been ordered to further evaluate the extent of his rotator cuff and determine the next step in his treatment considering his continued limitations and limited functionality. Once the scan is complete he will contact our office. Orders: Orders MR shoulder LT wo con Today S46.009A - Unspecified injury of muscle(s) and tendon(s) of the rotator cuff of unspecified shoulder, initial encounter Coding Level of Care Code Est Pt Level 3 (21021) Complex EM visit Add On G2211 Diagnoses Dislocation of shoulder S43.005A Encounter type: initial encounter Laterality: left Injury of left rotator cuff S46.002A
[2024-11-05 08:40] VITALS: BMI 35.1
== END 2024-11-05 09:01 | disposition home or self-care (01) ==
LOC: HO.HOS 08:20
PROVIDERS: Visit Provider Physician Assistant
DX: S43.005A Unspecified dislocation of left shoulder joint, initial encounter (principal); S46.002A Unspecified injury of muscle(s) and tendon(s) of the rotator cuff of left shoulder, initial encounter
CPT/HCPCS: 99213; G2211

== ENCOUNTER → 2024-11-05 08:20 | Outpatient (BNVA) | payer OTHER, SELFPAY | PROVIDERS: Visit Provider Physician Assistant | DX: S43.005A Unspecified dislocation of left shoulder joint, initial encounter (principal); S46.002A Unspecified injury of muscle(s) and tendon(s) of the rotator cuff of left shoulder, initial encounter; X58.XXXA Exposure to other specified factors, initial encounter; Y93.9 Activity, unspecified; Y92.9 Unspecified place or not applicable; Y99.0 Civilian activity done for income or pay | CPT/HCPCS: 99212 ==